=== PATIENT | female | born 1955 | race Caucasian/White ===

== ENCOUNTER 2019-12-10 10:29 | Outpatient (CLI) | payer OTHER | END 2019-12-10 10:41 | disposition home or self-care (01) | LOC: RX STUDY 10:29 | DX: R13.19 Other dysphagia (principal) ==

== ENCOUNTER 2020-03-08 06:38 | Day surgery (SDC) | payer OTHER | END 2020-03-08 10:25 | disposition home or self-care (01) | LOC: AMB-ENDOS 06:38 | PROVIDERS: ATTEND Internal Medicine Gastroenterology | DX: K31.7 Polyp of stomach and duodenum (principal); K29.50 Unspecified chronic gastritis without bleeding; K31.89 Other diseases of stomach and duodenum ==